=== PATIENT | male | born 1965 | race Native Hawaiian/Other Pacific Islander ===

== ENCOUNTER 2017-06-28 22:23 | Emergency (ER) | payer OTHER ==
[~2017-06-28] VITALS: Ht 160 cm; Wt 93.9 kg
[2017-06-28 23:10] LABS: PLATELET COUNT 273 K/uL (142-355)
[2017-06-28 23:15] LABS: POTASSIUM 3.8 mmol/L (3.6-5.2); SODIUM 136 mmol/L (136-145)
== END 2017-06-29 00:15 | disposition home or self-care (01) ==
LOC: ED 22:23
DX: M47.892 Other spondylosis, cervical region (principal); M54.12 Radiculopathy, cervical region; K13.79 Other lesions of oral mucosa
CPT/HCPCS: 36415; 80053; 85027; 99283